=== PATIENT | male | born 1975 | race Caucasian/White ===

== ENCOUNTER 2017-12-07 20:32 | Emergency (ER) | payer OTHER ==
[2017-12-07 21:14] VITALS: TEMP 97.6
--- NOTE | 2017-12-07 22:33 | ED ---
Abdominal Pain HPI - General Chief Complaint: Abdominal Pain Stated Complaint: Cant Urinate Time Seen by Provider: 12/07/17 22:25 Source: patient, RN notes reviewed Mode of arrival: ambulatory Limitations: no limitations - History of Present Illness Initial Comments: This is a 42-year-old male who presents to the emergency department with chief complaint of difficulty urinating. Patient states that today he has been unable to fully empty his bladder. He states that when he tries to urinate he only has dribbles. He also reports that while trying to urinate he feels a sharp pain in his groin. Denies any significant abdominal pain, nausea or vomiting, diarrhea or constipation, fevers or chills. Patient states that he has never experienced anything like this in the past. Patient states he is not sexually active and denies any concern for STDs. - Related Data Previous Rx's Medication Instructions Recorded Ciprofloxacin HCl 500 mg PO BID 7 Days #14 tab 12/08/17 Allergies Allergy/AdvReac Type Severity Reaction Status Date / Time No Known Allergies Allergy Verified 12/07/17 21:13 Review of Systems ROS Statement: Those systems with pertinent positive or pertinent negative responses have been documented in the HPI. ROS Other: All systems not noted in ROS Statement are negative. Past Medical History Past Medical History: Hyperlipidemia History of Any Multi-Drug Resistant Organisms: None Reported Past Surgical History: No Surgical Hx Reported Past Psychological History: No Psychological Hx Reported Smoking Status: Former smoker Past Alcohol Use History: Occasional Past Drug Use History: None Reported General Exam - General Exam Comments Initial Comments: General: Awake and alert, well-developed; in no apparent distress. HEENT: Head atraumatic, normocephalic. Pupils are equal, round and reactive to light. Extraocular movements intact. Oropharynx moist without erythema or exudate. Neck: Supple. Normal ROM. Cardiovascular: Regular rate and rhythm. No murmurs, rubs or gallops. Chest symmetrical. Respiratory: Lungs clear to auscultation bilaterally. No wheezes, rales or rhonchi. Normal respiratory effort with no use of accessory muscles. Abdomen: Soft, non-tender, non-distended. No rigidity, rebound or guarding. Normal bowel sounds in all 4 quadrants. No CVA tenderness bilaterally. Musculoskeletal: Normal ROM, no tenderness bilateral upper and lower extremities. Ambulating normally. Skin: [place], warm and dry without rashes or lesions. Neurological: Alert and oriented x3. CN II-XII grossly intact. Speech is fluent and answers are appropriate. No focal neuro deficits. Psychiatric: Normal mood and affect. No overt signs of depression or anxiety noted. Limitations: no limitations Course Vital Signs 12/07/17 12/08/17 21:10 01:26 Temperature 97.6 F Pulse Rate 93 87 Respiratory 19 16 Rate Blood Pressure 160/93 126/80 O2 Sat by Pulse 96 95 Oximetry Medical Decision Making - Medical Decision Making This is a 6-year-old male who presented to the emergency department with chief complaint of difficulty urinating. Patient was able to urinate while in the emergency department. UA was sent and revealed evidence for blood and red blood cells. Labs and computed tomography scan without contrast was obtained. CBC revealed a mildly elevated white blood cell count at 12.5 with a left shift. CMP was essentially unremarkable. Computed tomography scan revealed a nonobstructing right renal calculus and minimal stranding around the left kidney that may be suggestive of a previous ureter calculus obstruction. This was discussed with patient. Recommended following up with urology for further evaluation of hematuria until resolution. Patient is in agreement with plan and voices understanding. Vital signs stable and patient is in no acute distress. He will be discharged home at this time. - Lab Data Result diagrams: 12/07/17 23:58 12/07/17 23:58 Lab Results 12/07/17 12/07/17 12/07/17 Range/Units 23:05 23:58 23:58 WBC 12.5 H (3.8-10.6) k/uL RBC 5.49 (4.30-5.90) m/uL Hgb 15.1 (13.0-17.5) gm/dL Hct 44.2 (39.0-53.0) % MCV 80.6 (80.0-100.0) fL MCH 27.6 (25.0-35.0) pg MCHC 34.2 (31.0-37.0) g/dL RDW 14.4 (11.5-15.5) % Plt Count 289 (150-450) k/uL Neutrophils % 87 % Lymphocytes % 8 % Monocytes % 4 % Eosinophils % 0 % Basophils % 0 % Neutrophils # 10.9 H (1.3-7.7) k/uL Lymphocytes # 1.0 (1.0-4.8) k/uL Monocytes # 0.5 (0-1.0) k/uL Eosinophils # 0.1 (0-0.7) k/uL Basophils # 0.0 (0-0.2) k/uL Sodium 142 (137-145) mmol/L Potassium 4.5 (3.5-5.1) mmol/L Chloride 108 H (98-107) mmol/L Carbon Dioxide 21 L (22-30) mmol/L Anion Gap 13 mmol/L BUN 7 L (9-20) mg/dL Creatinine 1.50 H (0.66-1.25) mg/dL Est GFR (CKD-EPI)AfAm 67 (>60 ml/min/1.73 sqM) Est GFR (CKD-EPI)NonAf 58 (>60 ml/min/1.73 sqM) Glucose 119 H (74-99) mg/dL Calcium 9.4 (8.4-10.2) mg/dL Total Bilirubin 0.6 (0.2-1.3) mg/dL AST 45 (17-59) U/L ALT 61 (21-72) U/L Alkaline Phosphatase 88 (38-126) U/L Total Protein 7.3 (6.3-8.2) g/dL Albumin 4.3 (3.5-5.0) g/dL Urine Color Yellow Urine Appearance Cloudy (Clear) Urine pH 6.0 (5.0-8.0) Ur Specific [place] 1.011 (1.001-1.035) Urine Protein Trace H (Negative) Urine Glucose (UA) Negative (Negative) Urine Ketones Negative (Negative) Urine Blood Large H (Negative) Urine Nitrite Negative (Negative) Urine Bilirubin Negative (Negative) Urine Urobilinogen <2.0 (<2.0) mg/dL Ur Leukocyte Esterase Negative (Negative) Urine RBC 103 H (0-5) /hpf Urine WBC 6 H (0-5) /hpf Ur Squamous Epith Cells <1 (0-4) /hpf Hyaline Casts 31 H (0-2) /lpf Urine Mucus Moderate H (None) /hpf - Radiology Data Radiology results: report reviewed CT abdomen and pelvis without contrast impression: Normal appendix. Nonobstructing right renal calculus. There is very minimal stranding around the left kidney that could relate to recent episode of obstruction. The left ureter however does not show a calculus. Urinary bladder is nondilated in there is no evidence of urinary retention. X-ray KUB impression: Nonacute abdomen Disposition Clinical Impression: Hematuria, Nephrolithiasis Disposition: HOME SELF-CARE Condition: Good Instructions: Kidney Stones (ED), Hematuria (ED) Additional Instructions: As discussed, please follow-up with urology until hematuria has resolved. Please follow up with them for further evaluation. Please have urine repeated one week after finishing course of antibiotics. Please take medications as prescribed. Please follow up with primary care provider within 1-2 days. Return to emergency department if symptoms should worsen or any concerns arise. Prescriptions: Ciprofloxacin HCl 500 mg PO BID 7 Days #14 tab Is patient prescribed a controlled substance at d/c from ED?: No Referrals: Mp [place] MD [Primary Care Provider] - 1-2 days Time of Disposition: 01:17
[2017-12-07 23:25] LABS: Appearance,Urine Cloudy (Clear); Bilirubin,Urine Negative (Negative); Blood,Urine Large (Negative); Color,Urine Yellow; Glucose,Urine (UA) Negative (Negative); Hyaline Casts,Urine 31 /lpf (0-2); Ketones,Urine Negative (Negative); Leukocyte Esterase,Urine Negative (Negative); Mucus,Urine Moderate /hpf; Nitrite,Urine Negative (Negative); Protein,Urine Trace (Negative); RBC,Urine 103 /hpf (0-5); Specific Gravity,Urine 1.011 (1.001-1.035); Squamous Epithelial Cell,Urine <1 /hpf (0-4); Urobilinogen,Urine <2.0 mg/dL (<2.0); WBC,Urine 6 /hpf (0-5)
[2017-12-08 00:21] LABS: Basophils % (A) 0 %; Eosinophils # (A) 0.1 k/uL (0-0.7); Eosinophils % (A) 0 %; HCT 44.2 % (39.0-53.0); HGB 15.1 gm/dL (13.0-17.5); Lymphocytes % (A) 8 %; MCH 27.6 pg (25.0-35.0); MCHC 34.2 g/dL (31.0-37.0); MCV 80.6 fL (80.0-100.0); Mean Platelet Volume 6.6; Monocytes # (A) 0.5 k/uL (0-1.0); Monocytes % (A) 4 %; Neutrophils # (A) 10.9 k/uL (1.3-7.7); Neutrophils % (A) 87 %; Platelet Count 289 k/uL (150-450); RBC 5.49 m/uL (4.30-5.90); RDW 14.4 % (11.5-15.5); WBC 12.5 k/uL (3.8-10.6)
[2017-12-08 00:25] LABS: Albumin 4.3 g/dL (3.5-5.0); Calcium 9.4 mg/dL (8.4-10.2); Potassium 4.5 mmol/L (3.5-5.1); Total Bilirubin 0.6 mg/dL (0.2-1.3); Total Protein 7.3 g/dL (6.3-8.2)
--- NOTE | 2017-12-08 00:32 | XR ---
EXAMINATION TYPE: XR KUB DATE OF EXAM: 12/08/2017 COMPARISON: NONE HISTORY: Abdominal pain TECHNIQUE: 2 views FINDINGS: There is no sign of intestinal obstruction or pneumoperitoneum. Fecal pattern is normal. Th ere is no sign of a mass. There are no pathologic calcifications over the kidneys. Lung bases are esme ar. IMPRESSION: Nonacute abdomen.
--- NOTE | 2017-12-08 00:40 | CT ---
EXAMINATION TYPE: CT abdomen pelvis wo con DATE OF EXAM: 12/08/2017 COMPARISON: None HISTORY: unable to urinate CT DLP: 1749.10 mGycm Automated exposure control for dose reduction was used. TECHNIQUE: Helical acquisition of images was performed from the lung bases through the pelvis. FINDINGS: Lung bases are clear. There is no pleural effusion. Heart size is normal. There is no pericardial eff usion. Liver spleen pancreas gallbladder appear normal. Bile ducts are not dilated. There is no adrenal mass . There is 4 mm calculus in the upper pole right kidney. There is no hydronephrosis. Ureters are not dilated. Bladder distends smoothly. Bladder is not very full. There is no evidence of a pelvic mass. I see no intestinal wall thickening. There are no dilated loops. Appendix appears normal. There is no ascites. There is no sign of free air. There is small umbilical hernia that contains fat. I see no b nelson destructive process. IMPRESSION: NORMAL APPENDIX. NONOBSTRUCTING RIGHT RENAL CALCULUS. THERE IS VERY MINIMAL STRANDING AROUND THE LEFT KIDNEY THAT COULD RELATE TO RECENT EPISODE OF OBSTRUCTION. THE LEFT URETER HOWEVER DOES NOT SHOW A C ALCULUS. URINARY BLADDER IS NOT DILATED AND THERE IS NO EVIDENCE OF URINARY RETENTION.
[2017-12-08] MEDS ORDERED: CIPROFLOXACIN HCL 500 MG TAB PO STA (01:04)
[2017-12-08] MEDS ORDERED: LORazepam 1 MG TAB PO STA (01:29)
[2017-12-08 01:31] VITALS: BP 126/80; PULSE 87; RESP 16
== END 2017-12-08 01:31 | disposition home or self-care (01) ==
LOC: EC 20:32
DX: N20.0 Calculus of kidney (principal); Z79.891 Long term (current) use of opiate analgesic
CPT/HCPCS: 36415; 51798; 74018; 74176; 80053; 81001; 85025; 87086; 99284